=== PATIENT | female | born 1995 | race Caucasian/White ===

== ENCOUNTER 2020-11-18 11:44 | Inpatient (IN) ==
[2020-11-18] MEDS ORDERED: 0.9 % Sodium Chloride 1,000 ML IVC ONE ×2 (11:58→13:02)
[2020-11-18] MEDS ORDERED: Ondansetron 4 MG/2 ML VIAL IVP ONE (12:04)
[2020-11-18 12:27] LABS: Hematocrit 54.5 % (35.3-44.9); Hemoglobin 16.3 g/dL (11.5-15.4); Mean Corpuscular HGB Conc 29.9 g/dL (31.6-35.5); Mean Corpuscular Hemoglobin 28.6 pg (28.0-33.3); Mean Corpuscular Volume 95.6 fL (83.0-100.0); Mean Platelet Volume 10.1 fL (9.4-12.4); Platelet Count 477 K/mcL (140-400); Red Cell Distribution Width 12.7 % (11.5-14.5); White Blood Count 28.1 K/mcL (4.3-11.1)
[2020-11-18 12:28] LABS: VBG HCO3 6 mEq/L (21-27); VBG PCO2 28 mmHg (41-51); VBG PH 6.91 pH Units (7.32-7.42); VBG PO2 60 mmHg (25-50)
[2020-11-18 12:43] LABS: Bilirubin,Urine Negative (Negative); Blood,Urine Trace (Negative); Clarity,Urine Clear (Clear); Color,Urine Colorless (Yellow); Glucose,Urine (UA) >=1000 mg/dL (Normal); Ketones,Urine >150 mg/dL (Negative); Leukocyte Esterase,Urine Negative (Negative); Mucus,Urine Few per lpf (None-Few); Nitrite,Urine Negative (Negative); PH,Urine 5.5 pH Units (5.0-8.0); Protein,Urine 50 mg/dL (Neg-Trace); RBC,Urine 0-3 per hpf (0-3); Specific Gravity,Urine 1.029 (1.010-1.025); Squamous Epithelial Cell,Urine Moderate per hpf (None-Few); Urobilinogen,Urine Normal (Normal); WBC,Urine 0-3 per hpf (0-3)
[2020-11-18 13:00] LABS: Lymphocytes # 2.3 K/mcL (0.6-4.6); Monocytes # 1.1 K/mcL (0.0-1.3); Neutrophils # 24.7 K/mcL (1.6-8.9); Platelet Estimate Normal (Normal)
[2020-11-18] MEDS ORDERED: Ketorolac 15 MG/ML VIAL IVP ONE (13:15)
[2020-11-18 13:45] LABS: Albumin 5.2 g/dL (3.5-5.7); Albumin/Globulin Ratio 1.4 (1.1-2.2); Bilirubin,Total 0.6 mg/dL (0.3-1.0); Calcium 9.9 mg/dL (8.6-10.3); Globulin 3.8 g/dL (2.4-3.5); Potassium 4.9 mEq/L (3.5-5.1); Troponin I 0.03 ng/mL (< 0.04)
[2020-11-18] MEDS ORDERED: *HR* Dextrose 50 % in Water (Vial) 50 ML VIAL IVP PRN ×2 (13:46→14:48)
[2020-11-18] MEDS ORDERED: Insulin Human Regular 100 UNIT in 0.9 % Sodium Chloride 100 ML IVC SCH (14:00)
[2020-11-18] MEDS ORDERED: Insulin Regular, Human 100 UNIT/ML IV PRN (14:48)
[2020-11-18] MEDS ORDERED: Acetaminophen 325 MG TABLET PO PRN (14:48)
[2020-11-18] MEDS ORDERED: Naloxone 0.4 MG/ML INJ IVP PRN (14:48)
[2020-11-18] MEDS ORDERED: Ondansetron 4 MG/2 ML VIAL IVP PRN (14:57)
[2020-11-18] MEDS ORDERED: Azithromycin 500 MG in 0.9 % Sodium Chloride 250 ML IVPB SCH (15:00)
[2020-11-18] MEDS ORDERED: 0.9 % Sodium Chloride w KCl 20 MEQ/1,000 ML MLS IVC SCH (15:00)
[2020-11-18] MEDS: Insulin Human Regular 100 UNIT in 0.9 % Sodium Chloride 100 ML IVC SCH (15:22)
[2020-11-18] MEDS: cefTRIAXone 1,000 MG in Water for inj. (sterile) 10 ML IVP SCH (16:59)
[2020-11-18] MEDS: Pantoprazole 40 MG VIAL IVP SCH (17:02)
[2020-11-18 17:24] LABS: VBG HCO3 7 mEq/L (21-27); VBG PCO2 29 mmHg (41-51); VBG PH 7.02 pH Units (7.32-7.42); VBG PO2 196 mmHg (25-50)
[2020-11-18] MEDS: *HR* Heparin 5,000 UNIT/ML VIAL SQ SCH (17:28)
[2020-11-18 17:43] LABS: BUN/Creatinine Ratio 14 (6-26); Blood Urea Nitrogen 13 mg/dL (6-20); Carbon Dioxide 7 mEq/L (23-29); Chloride 106 mEq/L (98-107); Glucose 356 mg/dL (70-105); Osmolality,Calculated 296 (280-300); Phosphorous 3.1 mg/dL (2.7-4.5); Sodium 136 mEq/L (136-145); eGFR For African Americans > 60 (> 60); eGFR For Non-African Americans > 60 (> 60)
[2020-11-18] MEDS: D5% in 0.45% NACL w KCl 20 MEQ/1,000 ML MLS IVC PRN ×2 (18:51→23:00)
[2020-11-18] MEDS: Azithromycin 500 MG in 0.9 % Sodium Chloride 250 ML IVPB SCH (20:33)
[2020-11-18 22:03] LABS: VBG HCO3 12 mEq/L (21-27); VBG PCO2 35 mmHg (41-51); VBG PH 7.13 pH Units (7.32-7.42); VBG PO2 180 mmHg (25-50)
[2020-11-18 22:28] LABS: BUN/Creatinine Ratio 12 (6-26); Blood Urea Nitrogen 9 mg/dL (6-20); Carbon Dioxide 10 mEq/L (23-29); Chloride 110 mEq/L (98-107); Glucose 248 mg/dL (70-105); Magnesium 1.8 mg/dL (1.6-2.6); Osmolality,Calculated 287 (280-300); Phosphorous 1.6 mg/dL (2.7-4.5); Potassium 4.3 mEq/L (3.5-5.1); Sodium 135 mEq/L (136-145); eGFR For African Americans > 60 (> 60); eGFR For Non-African Americans > 60 (> 60)
[2020-11-19 00:32] LABS: VBG HCO3 15 mEq/L (21-27); VBG PCO2 29 mmHg (41-51); VBG PO2 169 mmHg (25-50)
[2020-11-19 01:15] LABS: BUN/Creatinine Ratio 11 (6-26); Blood Urea Nitrogen 7 mg/dL (6-20); Calcium 7.8 mg/dL (8.6-10.3); Carbon Dioxide 11 mEq/L (23-29); Chloride 113 mEq/L (98-107); Glucose 143 mg/dL (70-105); Magnesium 1.6 mg/dL (1.6-2.6); Osmolality,Calculated 278 (280-300); Phosphorous < 1.0 mg/dL (2.7-4.5); Potassium 3.4 mEq/L (3.5-5.1); Sodium 134 mEq/L (136-145); eGFR For African Americans > 60 (> 60); eGFR For Non-African Americans > 60 (> 60)
[2020-11-19] MEDS: D5% in 0.45% NACL w KCl 20 MEQ/1,000 ML MLS IVC PRN ×3 (03:18→20:05)
[2020-11-19 03:52] LABS: VBG HCO3 15 mEq/L (21-27); VBG PCO2 29 mmHg (41-51); VBG PH 7.32 pH Units (7.32-7.42); VBG PO2 55 mmHg (25-50)
[2020-11-19 04:16] LABS: BUN/Creatinine Ratio 9 (6-26); Blood Urea Nitrogen 6 mg/dL (6-20); Calcium 8.4 mg/dL (8.6-10.3); Carbon Dioxide 14 mEq/L (23-29); Chloride 112 mEq/L (98-107); Glucose 79 mg/dL (70-105); Magnesium 1.6 mg/dL (1.6-2.6); Osmolality,Calculated 277 (280-300); Phosphorous < 1.0 mg/dL (2.7-4.5); Potassium 3.4 mEq/L (3.5-5.1); Sodium 135 mEq/L (136-145); eGFR For African Americans > 60 (> 60); eGFR For Non-African Americans > 60 (> 60)
[2020-11-19 04:49] LABS: Estimated Average Glucose 289 mg/dl; Hemoglobin A1C 11.7 %
[2020-11-19 05:35] LABS: Basophils % 0.2 %; Hematocrit 40.6 % (35.3-44.9); Hemoglobin 13.4 g/dL (11.5-15.4); Immature Granulocytes % 0.8 % (0-4); Lymphocytes # 1.6 K/mcL (0.6-4.6); Mean Corpuscular Hemoglobin 29.5 pg (28.0-33.3); Mean Corpuscular Volume 89.4 fL (83.0-100.0); Mean Platelet Volume 9.8 fL (9.4-12.4); Monocytes # 2.1 K/mcL (0.0-1.3); Monocytes % 10.7 %; Neutrophils # 15.8 K/mcL (1.6-8.9); Platelet Count 319 K/mcL (140-400); Red Blood Count 4.54 M/mcL (3.82-4.97); Red Cell Distribution Width 12.5 % (11.5-14.5); Segmented Neutrophils % 80.3 %; White Blood Count 19.6 K/mcL (4.3-11.1)
[2020-11-19] MEDS: *HR* Heparin 5,000 UNIT/ML VIAL SQ SCH ×2 (06:24→17:36)
[2020-11-19] MEDS: Pantoprazole 40 MG VIAL IVP SCH (08:20)
[2020-11-19] MEDS: cefTRIAXone 1,000 MG in Water for inj. (sterile) 10 ML IVP SCH (08:20)
[2020-11-19] MEDS: Insulin Human Regular 100 UNIT in 0.9 % Sodium Chloride 100 ML IVC SCH (08:32)
[2020-11-19] MEDS ORDERED: Insulin Human Regular 100 UNIT in 0.9 % Sodium Chloride 100 ML IVC SCH (10:45)
[2020-11-19 10:46] LABS: VBG HCO3 13 mEq/L (21-27); VBG PCO2 33 mmHg (41-51); VBG PH 7.21 pH Units (7.32-7.42); VBG PO2 114 mmHg (25-50)
[2020-11-19 11:27] LABS: BUN/Creatinine Ratio 7 (6-26); Blood Urea Nitrogen 5 mg/dL (6-20); Calcium 8.3 mg/dL (8.6-10.3); Carbon Dioxide 10 mEq/L (23-29); Chloride 104 mEq/L (98-107); Glucose 337 mg/dL (70-105); Magnesium 2.2 mg/dL (1.6-2.6); Osmolality,Calculated 283 (280-300); Phosphorous 1.4 mg/dL (2.7-4.5); Potassium 4.2 mEq/L (3.5-5.1); Sodium 131 mEq/L (136-145); eGFR For African Americans > 60 (> 60); eGFR For Non-African Americans > 60 (> 60)
[2020-11-19] MEDS ORDERED: Ringers Solution, Lactated 1,000 ML ONE (11:35)
[2020-11-19] MEDS: Ringers Solution, Lactated 1,000 ML IVC SCH ×3 (12:38→21:22)
[2020-11-19 16:30] LABS: VBG HCO3 18 mEq/L (21-27); VBG PCO2 37 mmHg (41-51); VBG PO2 166 mmHg (25-50)
[2020-11-19 17:02] LABS: BUN/Creatinine Ratio 6 (6-26); Blood Urea Nitrogen 4 mg/dL (6-20); Calcium 8.4 mg/dL (8.6-10.3); Carbon Dioxide 16 mEq/L (23-29); Chloride 108 mEq/L (98-107); Glucose 100 mg/dL (70-105); Magnesium 1.9 mg/dL (1.6-2.6); Osmolality,Calculated 275 (280-300); Potassium 3.5 mEq/L (3.5-5.1); Sodium 134 mEq/L (136-145); eGFR For African Americans > 60 (> 60); eGFR For Non-African Americans > 60 (> 60)
[2020-11-19 20:05] LABS: VBG HCO3 15 mEq/L (21-27); VBG PCO2 25 mmHg (41-51); VBG PH 7.39 pH Units (7.32-7.42); VBG PO2 212 mmHg (25-50)
[2020-11-19] MEDS: Azithromycin 500 MG in 0.9 % Sodium Chloride 250 ML IVPB SCH (20:18)
[2020-11-19 20:22] LABS: BUN/Creatinine Ratio 7 (6-26); Blood Urea Nitrogen 4 mg/dL (6-20); Calcium 7.5 mg/dL (8.6-10.3); Carbon Dioxide 14 mEq/L (23-29); Chloride 106 mEq/L (98-107); Glucose 422 mg/dL (70-105); Magnesium 1.7 mg/dL (1.6-2.6); Osmolality,Calculated 285 (280-300); Phosphorous 2.1 mg/dL (2.7-4.5); Potassium 4.5 mEq/L (3.5-5.1); Sodium 130 mEq/L (136-145); eGFR For African Americans > 60 (> 60); eGFR For Non-African Americans > 60 (> 60)
[2020-11-19 21:59] LABS: VBG HCO3 18 mEq/L (21-27); VBG PCO2 33 mmHg (41-51); VBG PH 7.34 pH Units (7.32-7.42); VBG PO2 233 mmHg (25-50)
[2020-11-19 22:15] LABS: BUN/Creatinine Ratio 7 (6-26); Blood Urea Nitrogen 3 mg/dL (6-20); Calcium 6.8 mg/dL (8.6-10.3); Carbon Dioxide 15 mEq/L (23-29); Chloride 112 mEq/L (98-107); Glucose 152 mg/dL (70-105); Osmolality,Calculated 284 (280-300); Potassium 2.9 mEq/L (3.5-5.1); Sodium 137 mEq/L (136-145); eGFR For African Americans > 60 (> 60); eGFR For Non-African Americans > 60 (> 60)
[2020-11-19] MEDS ORDERED: Potassium Chloride 40 MEQ, Lidocaine 1% 2 ML in 0.9 % Sodium Chloride 500 ML IVPB ONE (23:07)
[2020-11-20] MEDS: D5% in 0.45% NACL w KCl 20 MEQ/1,000 ML MLS IVC PRN (01:38)
[2020-11-20 04:21] LABS: BUN/Creatinine Ratio 6 (6-26); Blood Urea Nitrogen 3 mg/dL (6-20); Calcium 7.6 mg/dL (8.6-10.3); Carbon Dioxide 18 mEq/L (23-29); Chloride 110 mEq/L (98-107); Glucose 157 mg/dL (70-105); Osmolality,Calculated 282 (280-300); Potassium 3.9 mEq/L (3.5-5.1); Sodium 136 mEq/L (136-145); eGFR For African Americans > 60 (> 60); eGFR For Non-African Americans > 60 (> 60)
[2020-11-20] MEDS: *HR* Heparin 5,000 UNIT/ML VIAL SQ SCH (04:50)
[2020-11-20] MEDS ORDERED: D5% in Water 1,000 ML IVC PRN (06:48)
[2020-11-20] MEDS ORDERED: Dextrose Gel 15 GM/37.5 ML TUBE PO PRN ×2 (06:48)
[2020-11-20] MEDS: Ringers Solution, Lactated 1,000 ML IVC SCH (06:51)
[2020-11-20] MEDS ORDERED: Insulin DETEMIR 100 UNIT/ML X5UNITS SUBQ ONE (07:00)
[2020-11-20] MEDS ORDERED: Insulin LISPRO 300 UNITS/3 ML VIAL SUBQ SCH (08:00)
[2020-11-20] MEDS: Insulin LISPRO 300 UNITS/3 ML VIAL SUBQ SCH ×4 (08:05→14:08)
[2020-11-20] MEDS: cefTRIAXone 1,000 MG in Water for inj. (sterile) 10 ML IVP SCH (08:05)
[2020-11-20] MEDS: Pantoprazole 40 MG VIAL IVP SCH (08:06)
[2020-11-20 11:31] VITALS: BP 116/81
== END 2020-11-20 15:27 | disposition home or self-care (01) | DRG 637 ==
LOC: EMEROOARM 11:44 → 2NNU 15:33 → SUATTDRO 15:33 → 2NNU 16:05
PROVIDERS: ADMIT Pediatrics; ATTEND Internal Medicine